=== PATIENT | male | born 1950 | race Caucasian/White ===

== ENCOUNTER 2020-10-03 14:55 | Inpatient (IN) ==
[2020-10-03] MEDS ORDERED: NS 0.9% 1000 ml BAG 1,000 ML IV ONE (15:07)
[2020-10-03] MEDS ORDERED: Morphine 4 MG/ML VIAL (1 ml) IV ONE ×2 (15:07→17:04)
[2020-10-03 15:28] LABS: ABS Basophils 0.1 10^3/ul (0-0.2); ABS Eosinophils 1.2 10^3/ul (0-0.6); ABS Lymphocytes 2.6 10^3/ul (1.0-4.8); ABS Monocytes 1.5 10^3/ul (0-0.8); ABS Neutrophils 10.4 10^3/ul (1.5-7.7); Eosinophil % 7.3 %; Hematocrit 44 % (42-52); Hemoglobin 14.8 g/dL (14.0-18.0); Lymphocyte % 16.5 %; Mean Corpuscular HGB Conc 33 g/dL (31-36); Mean Corpuscular Hemoglobin 28 pg (27-31); Mean Corpuscular Volume 84 fL (80-94); Mean Platelet Volume 7.1 fL (7.4-10.4); Platelet Count 440 10^3/uL (150-450); Red Cell Distribution Width 14 % (10-15); White Blood Count 15.8 10^3/uL (3.5-10.8)
[2020-10-03] MEDS ORDERED: Iodixanol (CONTRAST) 320 MG/ML 100 ML SDV IV ONE (15:33)
[2020-10-03 15:36] LABS: Activated Partial Thrombo Time 32.4 seconds (26.0-38.0); INR 1.16 (0.82-1.09)
[2020-10-03 16:29] LABS: TSH Ultra Thyroid Stim Horm 5.67 mcIU/mL (0.34-5.60)
[2020-10-03 16:54] LABS: Albumin 3.7 g/dL (3.2-5.2); Calcium 8.8 mg/dL (8.6-10.3); Magnesium 1.6 mg/dL (1.9-2.7); Potassium 3.7 mmol/L (3.5-5.0); Total Bilirubin 0.4 mg/dL (0.2-1.0)
[2020-10-03] MEDS ORDERED: Magnesium Sulfate 2 gm BAG 2 GM/50 ML BAG IVPB ONE (16:59)
[2020-10-03 17:00] LABS: Albumin/Globulin Ratio 1.2 (1-3); C Reactive Protein 122.52 mg/L (<8.01); EGFR African American 141.5 (>60); EGFR Non-African American 116.9 (>60); Globulin 3.1 g/dL (2-4); Total Protein 6.8 g/dL (6.4-8.9)
[2020-10-03 17:10] LABS: Free T3 3.4 pg/mL (2.5-3.9)
[2020-10-03 17:11] LABS: Free T4 1.37 ng/dL (0.61-1.12)
[2020-10-03] MEDS ORDERED: oxyCODONE SR 10 mg TAB PO PRN ×3 (17:31→18:05)
[2020-10-03] MEDS ORDERED: Ondansetron 4 mg VIAL 2 MG/ML 2 ml VIAL IV PRN (18:01)
[2020-10-03] MEDS ORDERED: Morphine 2 MG/ML SYRINGE IV PRN (18:05)
[2020-10-03] MEDS ORDERED: Polyethylene Glycol 3350 17 GM PACKET PO PRN (18:23)
[2020-10-03] MEDS ORDERED: Nicotine GUM 4MG FRUIT FLAVOR PO PRN (18:27)
[2020-10-03] MEDS ORDERED: Enoxaparin 40 MG/0.4 ML SYR SUBCUT SCH (19:00)
[2020-10-03] MEDS: Senna TAB 8.6 mg TAB PO SCH (22:28)
[2020-10-04 06:28] LABS: Hematocrit 40 % (42-52); Hemoglobin 13.4 g/dL (14.0-18.0); Mean Corpuscular HGB Conc 33 g/dL (31-36); Mean Corpuscular Hemoglobin 28 pg (27-31); Mean Corpuscular Volume 83 fL (80-94); Mean Platelet Volume 7.5 fL (7.4-10.4); Platelet Count 406 10^3/uL (150-450); Red Blood Count 4.85 10^6 /uL (4.18-5.48); Red Cell Distribution Width 14 % (10-15); White Blood Count 17.7 10^3/uL (3.5-10.8)
[2020-10-04 06:55] LABS: Anion Gap 9 mmol/L (2-11); Blood Urea Nitrogen 9 mg/dL (6-24); CO2 Carbon Dioxide 25 mmol/L (22-32); Calcium 8.4 mg/dL (8.6-10.3); Chloride 96 mmol/L (101-111); EGFR Non-African American 167.8 (>60); Glucose 104 mg/dL (70-100); Magnesium 1.8 mg/dL (1.9-2.7); Sodium 130 mmol/L (135-145)
[2020-10-04] MEDS ORDERED: Magnesium Sulfate IV 3 GM in NS 0.9% 100 ml BAG 100 ML IVPB ONE (08:00)
[2020-10-04 08:47] LABS: ABS Basophils 0.1 10^3/ul (0-0.2); ABS Eosinophils 0.4 10^3/ul (0-0.6); ABS Lymphocytes 1.4 10^3/ul (1.0-4.8); ABS Neutrophils 13.9 10^3/ul (1.5-7.7); Eosinophil % 2.5 %; Lymphocyte % 7.6 %
[2020-10-04] MEDS: Nicotine PATCH 21 MG/24 HR PATCH TRANSDERM SCH (08:55)
[2020-10-04] MEDS: Fluticasone NASAL SPRAY 50MCG 16 gm SPRAY BTL INTRANASAL SCH (08:55)
[2020-10-04 11:54] LABS: Troponin I 0.05 ng/mL (<0.03)
[2020-10-04] MEDS: oxyCODONE SR 10 mg TAB PO SCH ×2 (13:32→20:50)
[2020-10-04 15:59] LABS: Urine Appearance Clear; Urine Bilirubin Negative (Negative); Urine Blood Negative (Negative); Urine Color Yellow; Urine Glucose Negative (Negative); Urine Ketones 2+ (Negative); Urine Nitrite Negative (Negative); Urine Protein Negative (Negative); Urine Urobilinogen Negative (Negative)
[2020-10-04] MEDS: Senna TAB 8.6 mg TAB PO SCH (20:48)
[2020-10-05 05:17] LABS: Hematocrit 39 % (42-52); Mean Corpuscular HGB Conc 33 g/dL (31-36); Mean Corpuscular Hemoglobin 28 pg (27-31); Mean Corpuscular Volume 83 fL (80-94); Mean Platelet Volume 7.3 fL (7.4-10.4); Platelet Count 382 10^3/uL (150-450); Red Cell Distribution Width 14 % (10-15)
[2020-10-05 05:18] LABS: ABS Basophils 0.1 10^3/ul (0-0.2); ABS Eosinophils 0.9 10^3/ul (0-0.6); ABS Lymphocytes 1.6 10^3/ul (1.0-4.8); ABS Monocytes 2.2 10^3/ul (0-0.8); ABS Neutrophils 14.2 10^3/ul (1.5-7.7); Eosinophil % 4.9 %; Lymphocyte % 8.2 %
[2020-10-05 05:37] LABS: Calcium 8.2 mg/dL (8.6-10.3); EGFR African American 189.6 (>60); EGFR Non-African American 156.7 (>60); Magnesium 1.6 mg/dL (1.9-2.7); Potassium 3.9 mmol/L (3.5-5.0)
[2020-10-05] MEDS ORDERED: Magnesium Sulf 4 GM/100 ML IV 4,000 MG/100 ML BAG IVPB ONE (06:08)
[2020-10-05] MEDS: oxyCODONE SR 10 mg TAB PO SCH ×3 (06:12→21:57)
[2020-10-05] MEDS: cefTRIAXone 1 gm/50 mL NS BAG 1 GM/50 ML BAG IVPB SCH (06:21)
[2020-10-05] MEDS ORDERED: Rocuronium 50 mg VIAL 10 mg/ml 5 ml VIAL (50 mg) ONE (07:47)
[2020-10-05] MEDS ORDERED: fentaNYL 100 mcg/2 ml 50 MCG/ML VIAL ONE (07:47)
[2020-10-05] MEDS ORDERED: Midazolam 2 mg/2 ml VIAL 1 mg/ml 2 ml VIAL (2 mg) ONE (07:47)
[2020-10-05] MEDS ORDERED: Phenylephrine IV 10 MG/ML 1 ml VIAL ONE (07:48)
[2020-10-05] MEDS ORDERED: Lidocaine 2% PF 5 ML VIAL ONE (07:48)
[2020-10-05] MEDS ORDERED: Propofol 10 MG/ML 20 ML BTL ONE (07:48)
[2020-10-05] MEDS ORDERED: Remifentanil 2 MG VIAL ONE (07:56)
[2020-10-05] MEDS: DOXYcycline 100 MG in NS 0.9% 250 ml 250 ML IVPB SCH ×2 (08:54→21:56)
[2020-10-05] MEDS ORDERED: Benzocaine/Butamben/Tetracain (CETACAINE - SINGLE USE) 5 gm TOPICAL ONE (09:45)
[2020-10-05] MEDS ORDERED: Dexamethasone IV 4 MG/ML VIAL 1 ml VIAL ONE (11:16)
[2020-10-05] MEDS ORDERED: Ondansetron 4 mg VIAL 2 MG/ML 2 ml VIAL ONE (11:16)
[2020-10-05] MEDS ORDERED: Sodium Phosphate ADULT ENEMA 133 ML BTL PR ONE (13:42)
[2020-10-05] MEDS: Nicotine PATCH 21 MG/24 HR PATCH TRANSDERM SCH (13:44)
[2020-10-05] MEDS: Fluticasone NASAL SPRAY 50MCG 16 gm SPRAY BTL INTRANASAL SCH (13:44)
[2020-10-05] MEDS: Senna TAB 8.6 mg TAB PO SCH (21:57)
[2020-10-05] MEDS ORDERED: Enoxaparin 30 MG/0.3 ML SYR SUBCUT SCH (22:00)
[2020-10-06] MEDS: oxyCODONE SR 10 mg TAB PO SCH ×2 (05:53→13:50)
[2020-10-06 07:01] LABS: Hematocrit 39 % (42-52); Hemoglobin 13.1 g/dL (14.0-18.0); Mean Corpuscular HGB Conc 34 g/dL (31-36); Mean Corpuscular Hemoglobin 28 pg (27-31); Mean Corpuscular Volume 83 fL (80-94); Mean Platelet Volume 7.7 fL (7.4-10.4); Platelet Count 420 10^3/uL (150-450); Red Blood Count 4.65 10^6 /uL (4.18-5.48); Red Cell Distribution Width 14 % (10-15); White Blood Count 22.2 10^3/uL (3.5-10.8)
[2020-10-06 07:08] LABS: ABS Lymphocytes 1.6 10^3/ul (1.0-4.8); ABS Monocytes 2.2 10^3/ul (0-0.8); ABS Neutrophils 18.4 10^3/ul (1.5-7.7); Eosinophil % 0.1 %; Lymphocyte % 7.2 %
[2020-10-06 07:24] LABS: Calcium 8.7 mg/dL (8.6-10.3); EGFR African American 163.9 (>60); EGFR Non-African American 135.4 (>60); Magnesium 1.8 mg/dL (1.9-2.7); Potassium 4.2 mmol/L (3.5-5.0)
[2020-10-06] MEDS: cefTRIAXone 1 gm/50 mL NS BAG 1 GM/50 ML BAG IVPB SCH (10:36)
[2020-10-06] MEDS: Nicotine PATCH 21 MG/24 HR PATCH TRANSDERM SCH (10:38)
[2020-10-06] MEDS: Fluticasone NASAL SPRAY 50MCG 16 gm SPRAY BTL INTRANASAL SCH (10:38)
[2020-10-06] MEDS: DOXYcycline 100 MG in NS 0.9% 250 ml 250 ML IVPB SCH (11:45)
[2020-10-06 13:03] VITALS: BP 118/59
== END 2020-10-06 15:30 | disposition home or self-care (01) | DRG 180 ==
LOC: ED 14:55 → MED 14:55
PROVIDERS: ADMIT Internal Medicine; ATTEND Internal Medicine

== ENCOUNTER 2020-12-13 15:25 | Inpatient (IN) ==
[2020-12-13] MEDS ORDERED: Ondansetron 4 mg VIAL 2 MG/ML 2 ml VIAL IV PRN (17:27)
[2020-12-13] MEDS ORDERED: Dexamethasone IV 4 MG/ML 5 ML VIAL (20 MG) IVPB SCH (18:00)
[2020-12-13] MEDS: NS 0.9% 1000 ml BAG 1,000 ML IV SCH (18:35)
[2020-12-13] MEDS: Pantoprazole VIAL 40 MG VIAL IV SCH (18:41)
[2020-12-13 20:06] LABS: ABS Lymphocytes 0.5 10^3/ul (1.0-4.8); ABS Monocytes 0.3 10^3/ul (0-0.8); ABS Neutrophils 1.4 10^3/ul (1.5-7.7); Eosinophil % 0.5 %; Hematocrit 24 % (42-52); Lymphocyte % 22.2 %; Mean Corpuscular HGB Conc 33 g/dL (31-36); Mean Corpuscular Hemoglobin 27 pg (27-31); Mean Corpuscular Volume 82 fL (80-94); Mean Platelet Volume 7.6 fL (7.4-10.4); Platelet Count 45 10^3/uL (150-450); Red Cell Distribution Width 18 % (10-15); White Blood Count 2.1 10^3/uL (3.5-10.8)
[2020-12-13 20:22] LABS: Albumin 2.7 g/dL (3.2-5.2); Albumin/Globulin Ratio 0.8 (1-3); Calcium 7.6 mg/dL (8.6-10.3); EGFR African American 134.5 (>60); EGFR Non-African American 111.2 (>60); Globulin 3.3 g/dL (2-4); Total Bilirubin 0.8 mg/dL (0.2-1.0)
[2020-12-14] MEDS: NS 0.9% 1000 ml BAG 1,000 ML IV SCH ×2 (02:35→22:45)
[2020-12-14 06:25] LABS: Hematocrit 23 % (42-52); Mean Corpuscular HGB Conc 34 g/dL (31-36); Mean Corpuscular Hemoglobin 28 pg (27-31); Mean Corpuscular Volume 82 fL (80-94); Mean Platelet Volume 7.6 fL (7.4-10.4); Platelet Count 44 10^3/uL (150-450); Red Blood Count 2.85 10^6 /uL (4.18-5.48); Red Cell Distribution Width 18 % (10-15); White Blood Count 2.5 10^3/uL (3.5-10.8)
[2020-12-14 06:41] LABS: Albumin 2.6 g/dL (3.2-5.2); Albumin/Globulin Ratio 0.8 (1-3); Calcium 7.4 mg/dL (8.6-10.3); EGFR Non-African American 176.1 (>60); Globulin 3.2 g/dL (2-4); Potassium 3.2 mmol/L (3.5-5.0); Total Bilirubin 0.6 mg/dL (0.2-1.0); Total Protein 5.8 g/dL (6.4-8.9)
[2020-12-14 07:41] LABS: ABS Lymphocytes 0.4 10^3/ul (1.0-4.8); ABS Monocytes 0.3 10^3/ul (0-0.8); ABS Neutrophils 1.8 10^3/ul (1.5-7.7); Eosinophil % 0.1 %; Lymphocyte % 16.7 %
[2020-12-14] MEDS: Pantoprazole VIAL 40 MG VIAL IV SCH (08:53)
[2020-12-14] MEDS: KCL 20 MEQ/100 ML IVPREMIX 20 MEQ/100 ML BAG IV SCH ×3 (08:53→13:34)
[2020-12-14] MEDS: Dexamethasone IV 4 MG/ML VIAL 1 ml VIAL IV SLOW PU SCH (08:53)
[2020-12-14 10:02] LABS: Calcium (PTH Intact) 7.3 mg/dL (8.6-10.3)
[2020-12-14 10:10] LABS: C Reactive Protein 304.34 mg/L (<8.01)
[2020-12-14 13:30] LABS: Magnesium 1.8 mg/dL (1.9-2.7)
[2020-12-14 14:11] LABS: Vitamin D Total 25(OH) 14.2 ng/mL (20-50)
[2020-12-14] MEDS ORDERED: Magnesium Sulfate 2 gm BAG 2 GM/50 ML BAG IVPB ONE (16:00)
[2020-12-15 06:41] LABS: ABS Lymphocytes 0.8 10^3/ul (1.0-4.8); ABS Monocytes 0.5 10^3/ul (0-0.8); ABS Neutrophils 3.7 10^3/ul (1.5-7.7); Eosinophil % 0.3 %; Hematocrit 23 % (42-52); Lymphocyte % 16.5 %; Mean Corpuscular HGB Conc 35 g/dL (31-36); Mean Corpuscular Hemoglobin 28 pg (27-31); Mean Corpuscular Volume 82 fL (80-94); Platelet Count 74 10^3/uL (150-450); Red Blood Count 2.82 10^6 /uL (4.18-5.48); Red Cell Distribution Width 19 % (10-15)
[2020-12-15 06:46] LABS: Albumin 2.6 g/dL (3.2-5.2); Albumin/Globulin Ratio 0.9 (1-3); C Reactive Protein 190.17 mg/L (<8.01); Calcium 7.3 mg/dL (8.6-10.3); EGFR African American 198.3 (>60); EGFR Non-African American 163.9 (>60); Potassium 3.3 mmol/L (3.5-5.0); Total Bilirubin 0.4 mg/dL (0.2-1.0); Total Protein 5.6 g/dL (6.4-8.9)
[2020-12-15] MEDS: NS 0.9% 1000 ml BAG 1,000 ML IV SCH ×3 (07:01→23:21)
[2020-12-15] MEDS: Dexamethasone IV 4 MG/ML VIAL 1 ml VIAL IV SLOW PU SCH (08:55)
[2020-12-15] MEDS: Pantoprazole VIAL 40 MG VIAL IV SCH (08:55)
[2020-12-15] MEDS: Morphine 2 MG/ML SYRINGE IV PRN (12:31)
[2020-12-16] MEDS: NS 0.9% 1000 ml BAG 1,000 ML IV SCH ×2 (07:41→14:46)
[2020-12-16 07:49] LABS: Hematocrit 21 % (42-52); Hemoglobin 7.1 g/dL (14.0-18.0); Mean Corpuscular HGB Conc 34 g/dL (31-36); Mean Corpuscular Hemoglobin 28 pg (27-31); Mean Corpuscular Volume 83 fL (80-94); Mean Platelet Volume 7.3 fL (7.4-10.4); Platelet Count 71 10^3/uL (150-450); Red Blood Count 2.49 10^6 /uL (4.18-5.48); Red Cell Distribution Width 19 % (10-15); White Blood Count 5.8 10^3/uL (3.5-10.8)
[2020-12-16 08:02] LABS: Albumin 2.2 g/dL (3.2-5.2); Albumin/Globulin Ratio 0.8 (1-3); Calcium 6.8 mg/dL (8.6-10.3); EGFR African American 242.5 (>60); EGFR Non-African American 200.5 (>60); Globulin 2.7 g/dL (2-4); Magnesium 1.3 mg/dL (1.9-2.7); Total Bilirubin 0.3 mg/dL (0.2-1.0); Total Protein 4.9 g/dL (6.4-8.9)
[2020-12-16 08:13] LABS: Potassium 2.6 mmol/L (3.5-5.0)
[2020-12-16 08:27] LABS: ABS Lymphocytes 0.8 10^3/ul (1.0-4.8); ABS Monocytes 0.5 10^3/ul (0-0.8); ABS Neutrophils 4.5 10^3/ul (1.5-7.7); Eosinophil % 0.3 %; Lymphocyte % 13.7 %
[2020-12-16] MEDS ORDERED: Magnesium Sulf 4 GM/100 ML IV 4,000 MG/100 ML BAG IVPB ONE (09:11)
[2020-12-16] MEDS: Dexamethasone IV 4 MG/ML VIAL 1 ml VIAL IV SLOW PU SCH (09:39)
[2020-12-16] MEDS: Pantoprazole VIAL 40 MG VIAL IV SCH (09:39)
[2020-12-16] MEDS: methylPREDNISolone SOD 40 mg/ml 1 ml VIAL IV SCH (11:28)
[2020-12-16] MEDS: KCL 20 MEQ/100 ML IVPREMIX 20 MEQ/100 ML BAG IV SCH ×2 (12:23→14:23)
[2020-12-16] MEDS ORDERED: TPN 24 HR with Dextrose 50% Water 500 ML, Amino Acid Infusion 10% 850 ML, Sterile Water... CENTR SCH (17:00)
[2020-12-16] MEDS: Morphine 2 MG/ML SYRINGE IV PRN (20:31)
[2020-12-17 05:08] LABS: Hematocrit 21 % (42-52); Hemoglobin 6.9 g/dL (14.0-18.0); Mean Corpuscular HGB Conc 34 g/dL (31-36); Mean Corpuscular Hemoglobin 28 pg (27-31); Mean Corpuscular Volume 82 fL (80-94); Mean Platelet Volume 7.3 fL (7.4-10.4); Platelet Count 96 10^3/uL (150-450); Red Blood Count 2.51 10^6 /uL (4.18-5.48); Red Cell Distribution Width 19 % (10-15); White Blood Count 6.2 10^3/uL (3.5-10.8)
[2020-12-17 05:32] LABS: ALT 21 U/L (7-52); AST 23 U/L (13-39); Albumin 2.3 g/dL (3.2-5.2); Albumin/Globulin Ratio 0.9 (1-3); Alkaline Phosphatase 50 U/L (35-149); Anion Gap 6 mmol/L (2-11); Blood Urea Nitrogen 10 mg/dL (6-24); CO2 Carbon Dioxide 25 mmol/L (22-32); Calcium 7.2 mg/dL (8.6-10.3); Chloride 102 mmol/L (101-111); Cholesterol 95 mg/dL; EGFR Non-African American 185.1 (>60); Globulin 2.6 g/dL (2-4); Glucose 184 mg/dL (70-100); Magnesium 1.7 mg/dL (1.9-2.7); Phosphorus 1.6 mg/dL (2.5-5.0); Potassium 2.8 mmol/L (3.5-5.0); Sodium 133 mmol/L (135-145); Total Protein 4.9 g/dL (6.4-8.9); Triglycerides 114 mg/dL
[2020-12-17 05:36] LABS: ABS Lymphocytes 1.1 10^3/ul (1.0-4.8); ABS Monocytes 0.7 10^3/ul (0-0.8); ABS Neutrophils 4.4 10^3/ul (1.5-7.7); Eosinophil % 0.1 %; Lymphocyte % 17.7 %
[2020-12-17 05:52] LABS: Prealbumin 8 mg/dL (18-38)
[2020-12-17] MEDS: Pantoprazole VIAL 40 MG VIAL IV SCH (08:05)
[2020-12-17] MEDS: methylPREDNISolone SOD 40 mg/ml 1 ml VIAL IV SCH (08:05)
[2020-12-17] MEDS ORDERED: TPN 24 HR with Dextrose 50% Water 500 ML, Amino Acid Infusion 10% 850 ML, Sterile Water... CENTR SCH (09:57)
[2020-12-17] MEDS ORDERED: Magnesium Sulfate IV 3 GM in NS 0.9% 100 ml BAG 100 ML IVPB ONE (10:00)
[2020-12-17] MEDS: KCL 10 MEQ/50 ML IVPREMIX 10 MEQ/50 ML BAG IV SCH ×3 (11:52→14:44)
[2020-12-17 12:54] LABS: % Iron Saturation 58 % (15-55); Iron 68 ug/dL (50-212); Total Iron Binding Capacity 118 mcg/dL (250-450); Transferrin 84 mg/dL (203-362); Unsaturated Iron Binding < 103 ug/dL
[2020-12-17 13:14] LABS: Ferritin 1061.7 ng/mL (24-336)
[2020-12-17 13:19] LABS: Vitamin B12 > 1450 pg/mL (180-914)
[2020-12-18 06:35] LABS: Hematocrit 31 % (42-52); Hemoglobin 10.5 g/dL (14.0-18.0); Mean Corpuscular HGB Conc 34 g/dL (31-36); Mean Corpuscular Hemoglobin 29 pg (27-31); Mean Corpuscular Volume 85 fL (80-94); Mean Platelet Volume 7.4 fL (7.4-10.4); Platelet Count 161 10^3/uL (150-450); Red Blood Count 3.66 10^6 /uL (4.18-5.48); Red Cell Distribution Width 19 % (10-15); White Blood Count 12.3 10^3/uL (3.5-10.8)
[2020-12-18 06:54] LABS: Albumin 2.7 g/dL (3.2-5.2); Albumin/Globulin Ratio 0.9 (1-3); Calcium 7.4 mg/dL (8.6-10.3); EGFR African American 256.6 (>60); EGFR Non-African American 212.1 (>60); Globulin 3.1 g/dL (2-4); Magnesium 1.5 mg/dL (1.9-2.7); Phosphorus 1.4 mg/dL (2.5-5.0); Potassium 2.8 mmol/L (3.5-5.0); Total Bilirubin 0.6 mg/dL (0.2-1.0); Total Protein 5.8 g/dL (6.4-8.9)
[2020-12-18 07:05] LABS: Anisocytosis 1+
[2020-12-18 07:06] LABS: ABS Lymphocytes 1.8 10^3/ul (1.0-4.8); ABS Monocytes 1.5 10^3/ul (0-0.8); Eosinophil % 0.2 %; Lymphocyte % 14.6 %; Nucleated Red Blood Cells % 0.1; Polychromasia 1+
[2020-12-18] MEDS: Pantoprazole VIAL 40 MG VIAL IV SCH (09:49)
[2020-12-18] MEDS: KCL 10 MEQ/50 ML IVPREMIX 10 MEQ/50 ML BAG IV SCH ×3 (11:03→13:29)
[2020-12-18 11:30] VITALS: BP 125/84
== END 2020-12-18 15:25 | disposition home or self-care (01) | DRG 389 ==
LOC: SSU 15:25 → CHOA 15:25 → OBSVTOIN 17:33
PROVIDERS: ADMIT Internal Medicine Hematology & Oncology; ATTEND Internal Medicine Hematology & Oncology